=== PATIENT | male | born 1995 | race Caucasian/White ===

== ENCOUNTER 2017-09-16 12:48 | Emergency (ER) | payer MEDICAID, OTHER ==
[2017-09-16] MEDS: LIDOCAINE 1% (MDV) 10 ML INJ INJ (13:11)
[2017-09-16] MEDS: ACETAMINOPHEN 325 MG TAB PO (13:11)
[2017-09-16] MEDS: DIPHTH/TET/ACEL PERTUSS (ADULT) 0.5 ML VIAL IM (13:11)
== END 2017-09-16 14:09 | disposition home or self-care (01) ==
LOC: FTE 14:09
DX: S61.512A Laceration without foreign body of left wrist, initial encounter (principal); F17.210 Nicotine dependence, cigarettes, uncomplicated; W26.0XXA Contact with knife, initial encounter; Y92.000 Kitchen of unspecified non-institutional (private) residence as the place of occurrence of the external cause; Z23 Encounter for immunization
CPT/HCPCS: 12001; 90471; 90715; 99283-25